=== PATIENT | female | born 1955 | race Caucasian/White ===

== ENCOUNTER → 2020-10-20 | Outpatient (CLI) | payer OTHER ==
--- NOTE | 2020-10-20 14:19 | RAD ---
XR FOOT_RIGHT 3 VIEWS 10/20/2020 10:19 AM INDICATION: Ulcer on great toe COMPARISON: None available. TECHNIQUE: 3 views the right foot are provided. FINDINGS/ IMPRESSION: There is no acute fracture or dislocation. Joint spaces are maintained. Bone mineralization is within normal limits. Regional focal soft tissue swelling of the first digit is identified. There is no sof t tissue gas or osseous erosion. No radiopaque foreign body. Vascular calcifications are present. Karthikeyan ntar calcaneal enthesophyte is noted. Electronically signed by: Chanelle Rdz MD (10/20/2020 2:17 PM) [id number]
== END ==
LOC: DXRAD 10:08
DX: L97.519 Non-pressure chronic ulcer of other part of right foot with unspecified severity (principal)
CPT/HCPCS: 73630

== ENCOUNTER → 2020-11-10 | Outpatient (CLI) | payer OTHER ==
--- NOTE | 2020-11-10 13:41 | RAD ---
EXAM: Bilateral hand and wrist DATE: 11/10/2020 9:26 AM INDICATIONS: Reason: BILATERAL HAND PAIN. R/O HYPERFLEXABILITY / Spl. Instructions: / History: COMPARISON: No prior FINDINGS: PA, oblique and lateral views of the hand and wrist bilaterally show normal symmetric bone density. Regional joint spaces are preserved. Negative degenerative changes. Negative erosive type ch anges. Borderline hyperextension at the right middle finger PIP joint and left middle and ring PIP tate ints. Negative periarticular soft tissue calcifications or chondrocalcinosis. Negative focal soft tis fozia swelling. IMPRESSION: No radiographic findings of inflammatory or erosive arthropathy. On these nonstress views, there is borderline hyperextension of the bilateral middle finger PIP and l eft ring finger PIP joints. Electronically signed by: Mckinley Israel MD (11/10/2020 1:39 PM) [id number]
== END ==
LOC: RAD 09:10
PROVIDERS: ATTEND Internal Medicine
DX: M77.11 Lateral epicondylitis, right elbow (principal); M89.49 Other hypertrophic osteoarthropathy, multiple sites; M79.642 Pain in left hand; M79.641 Pain in right hand
CPT/HCPCS: 73130

== ENCOUNTER 2020-11-15 12:10 | Emergency (ER) | payer OTHER ==
[2020-11-15] MEDS ORDERED: ACETAMINOPHEN 500 MG TABLET PO ONE (13:16)
[2020-11-15] MEDS ORDERED: AZITHROMYCIN 500 MG in IV NORMAL SALINE 250ML 250 ML IV ONE (13:16)
[2020-11-15] MEDS ORDERED: IV NORMAL SALINE 1,000ML 1,000 ML IV ONE (13:16)
[2020-11-15] MEDS ORDERED: KETOROLAC 15 MG/ML VIAL. IVP ONE (13:16)
--- NOTE | 2020-11-15 15:51 | RAD ---
PROCEDURE: XR CHEST 1V, XR FOOT_RIGHT 3 VIEWS STUDY DATE: 11/15/2020 CLINICAL INDICATION / HISTORY: Right first digit pain.. TECHNIQUE: AP, lateral and oblique views of the right foot. COMPARISON: 10/20/2020 right foot x-ray FINDINGS: No fracture or dislocation is identified. A calcaneal spur is evident. The bone density is normal. The joint space widths are maintained, and there are no erosions to suggest an inflammatory a rthropathy. No soft tissue abnormality is seen. IMPRESSION: No acute osseous abnormality. EXAM: XR CHEST 1V INDICATION: Altered mental status. TECHNIQUE: Single view COMPARISON: None FINDINGS: The heart size is normal. The great vessels appear unremarkable. There is no hilar or mediastinal mass. The lungs are hypoventilatory but show no focal infiltrates. There is no pleural effusion or pneumothorax. There are no significant osseous abnormalities. IMPRESSION: No active cardiopulmonary disease. Electronically signed by: Jane Gu MD (11/15/2020 3:48 PM) [id number]
--- NOTE | 2020-11-15 15:54 | RAD ---
EXAM: CT Head without IV contrast INDICATION: Reason: FEVER, ALTERED / Spl. Instructions: / History: TECHNIQUE: Multi-detector row CT images were obtained of the head without the use of IV contrast. All CT scans performed at this facility utilize dose optimization techniques as appropriate to the exam, including the following: Automated exposure control and adjustment of the mA and/or KV according to patient size (this includes techniques or standardized protocols for targeted exams where dose is ind ication/reason for exam). COMPARISON: None FINDINGS: BRAIN PARENCHYMA: No evidence of acute intraparenchymal hemorrhage or infarct. There is mild volume l oss and white matter low density compatible chronic ischemic microvascular change. VENTRICLES & EXTRA-AXIAL SPACES: Ventricles are within normal limits. Basilar cisterns are patent. N o pathologic extra-axial fluid collection or mass. ORBITS: Orbital contents are unremarkable. SINUSES: Visualized paranasal sinuses and mastoid air cells are clear. OSSEOUS & SOFT TISSUES: Calvarium and skull base are intact. IMPRESSION: No acute intracranial pathology. Electronically signed by: Jane Gu MD (11/15/2020 3:51 PM) [id number]
[2020-11-15] MEDS ORDERED: KETOROLAC 15 MG/ML VIAL. ONE (16:06)
[2020-11-15 16:53] LABS: BASO # 0.1 x10^3/uL (0.0-0.2); BASO % 1 % (0-3); EOS % 0 % (0-3); HEMATOCRIT 45.7 % (36.0-47.0); HEMOGLOBIN 14.7 g/dL (12.0-15.5); LYMPH # 0.2 x10^3/uL (1.0-4.8); LYMPH % 2 % (24-48); MEAN CORPUSCULAR HEMOGLOBIN 26 pg (25-35); MEAN CORPUSCULAR HGB CONC 32 g/dL (31-37); MEAN CORPUSCULAR VOLUME 82 fL (79-100); MONO # 0.2 x10^3/uL (0.0-1.1); MONO % 2 % (0-9); NEUT # 8.2 x10^3uL (1.8-7.7); NEUT % 95 % (31-73); PLATELET COUNT 135 x10^3/uL (140-400); RED BLOOD COUNT 5.61 x10^6/uL (3.50-5.40); RED CELL DISTRIBUTION WIDTH 15.9 % (11.5-14.5); WHITE BLOOD COUNT 8.6 x10^3/uL (4.0-11.0)
--- NOTE | 2020-11-15 17:04 | EKG ---
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
[2020-11-15] MEDS: IOHEXOL 350 MG/ML 100 ML VIAL. IV ONE (18:13)
--- NOTE | 2020-11-15 18:28 | RAD ---
CTA CHEST History: Syncope. Fever. Shortness of breath. Technique: CT of the chest was performed with intravenous contrast. PE protocol. Maximum intensity pr ojection coronal and sagittal reconstructions were performed. Exposure: One or more of the following individualized dose reduction techniques were utilized for thi s examination: 1. Automated exposure control 2. Adjustment of the mA and/or kV according to patient size 3. Use of iterative reconstruction technique. Comparison: None Findings: Chest: Evaluation for pulmonary emboli is essentially nondiagnostic due to contrast bolus timing. Coronary artery calcifications. No aortic aneurysm or dissection. No pathologic lymphadenopathy. No c onsolidation or pleural effusion. No pneumothorax. Mild bilateral lower lobe linear atelectasis. Small right thyroid nodule measures 6 mm. Upper abdomen: Prior cholecystectomy. Bones: No pathologic osseous lesions. Impression: 1. Essentially nondiagnostic evaluation of the pulmonary arteries due to contrast bolus timing. Ryan mmend repeat CT or VQ scan to further evaluate if persistent clinical concern. 2. Otherwise, no acute intrathoracic pathology. 3. Coronary artery calcifications. 4. Small right thyroid nodule. Electronically signed by: Aurelio Mckinley DO (11/15/2020 6:25 PM) [facility]
--- NOTE | 2020-11-15 19:09 | PHYS DOC ---
General Adult EDM: Chief Complaint: SYNCOPE HPI: HPI: Patient is a [age] year old [sex] who presents with [] Current Medications: Current Meds: Current Medications Medications (Trade) Dose Ordered Sig/Carter Start Time Stop Time Status Last Admin Dose Admin Acetaminophen (Tylenol) 1,000 mg 1X ONCE 11/15/20 13:16 11/15/20 17:11 DC Azithromycin 500 mg/Sodium Chloride 250 ml @ 250 mls/hr 1X ONCE 11/15/20 13:16 11/15/20 17:11 DC Ceftriaxone Sodium 1 gm/ Sodium Chloride 50 ml @ 100 mls/hr 1X ONCE 11/15/20 13:16 11/15/20 17:11 DC Iohexol (Omnipaque 350 Mg/ml) 100 ml 1X ONCE 11/15/20 17:00 11/15/20 17:03 DC 11/15/20 18:13 100 ML Ketorolac Tromethamine (Toradol 15mg Vial) 15 mg 1X ONCE 11/15/20 13:16 11/15/20 17:11 DC Sodium Chloride 1,000 ml @ 1,000 mls/hr 1X ONCE 11/15/20 13:16 11/15/20 17:11 DC Allergies: Allergies: Allergies Coded Allergies Type Severity Reaction Last Updated Verified Sulfa (Sulfonamide Antibiotics) Allergy Intermediate 11/15/20 Yes Current Patient Data: Labs: Laboratory Tests Test 11/15/20 16:50 11/15/20 17:43 White Blood Count 8.6 x10^3/uL (4.0-11.0) Red Blood Count 5.61 x10^6/uL (3.50-5.40) H Hemoglobin 14.7 g/dL (12.0-15.5) Hematocrit 45.7 % (36.0-47.0) Mean Corpuscular Volume 82 fL (79-100) Mean Corpuscular Hemoglobin 26 pg (25-35) Mean Corpuscular Hemoglobin Concent 32 g/dL (31-37) Red Cell Distribution Width 15.9 % (11.5-14.5) H Platelet Count 135 x10^3/uL (140-400) L Neutrophils (%) (Auto) 95 % (31-73) H Lymphocytes (%) (Auto) 2 % (24-48) L Monocytes (%) (Auto) 2 % (0-9) Eosinophils (%) (Auto) 0 % (0-3) Basophils (%) (Auto) 1 % (0-3) Neutrophils # (Auto) 8.2 x10^3uL (1.8-7.7) H Lymphocytes # (Auto) 0.2 x10^3/uL (1.0-4.8) L Monocytes # (Auto) 0.2 x10^3/uL (0.0-1.1) Eosinophils # (Auto) 0.0 x10^3/uL (0.0-0.7) Basophils # (Auto) 0.1 x10^3/uL (0.0-0.2) Prothrombin Time 13.3 SEC (9.4-11.4) H Prothrombin Time INR 1.3 (0.9-1.1) H Activated Partial Thromboplast Time 36 SEC (23-33) H D-Dimer (Christal) > 19.00 mg/L (0.00-0.50) H EKG: EKG: [] Radiology/Procedures: Radiology/Procedures: [] Heart Score: Risk Factors: Risk Factors: DM, Current or recent (<one month) smoker, HTN, HLP, family history of CAD, obesity. Risk Scores: Score 0 - 3: 2.5% MACE over next 6 weeks - Discharge Home Score 4 - 6: 20.3% MACE over next 6 weeks - Admit for Clinical Observation Score 7 - 10: 72.7% MACE over next 6 weeks - Early Invasive Strategies Course & Med Decision Making: Course & Med Decision Making Pertinent Labs and Imaging studies reviewed. (See chart for details) Due to [facility] downtime and hospital policy, please see paper documentation regarding patients' emergency department visit. This includes triage/nursing/physician documentation and any associated labs, imaging studies, vital signs, medications, disposition, discharge instructions and prescriptions, if applicable. Dragon Disclaimer: Dragon Disclaimer: This electronic medical record was generated, in whole or in part, using a voice recognition dictation system. Departure Departure: Impression: Primary Impression: Sepsis Additional Impressions: UTI (urinary tract infection) Multisystem organ failure NSTEMI (non-ST elevated myocardial infarction) Renal insufficiency Transaminitis Disposition: 05 DC/TRF OTHER TYPE INSTITUTI ([facility], accepted by Dr. Jolly) Condition: CRITICAL Referrals: MONICA THRASHER (PCP) VAMSI MCKEON DO Nov 15, 2020 19:09
[2020-11-15 21:16] LABS: TOTAL PROTEIN 6.8 g/dL (6.4-8.2)
[2020-11-15 21:17] LABS: ALBUMIN 3.2 g/dL (3.4-5.0); ALBUMIN/GLOBULIN RATIO 0.9 (1.0-1.7); CALCIUM 8.9 mg/dL (8.5-10.1); CREATININE 1.4 mg/dL (0.6-1.0); GFR 37.9; POTASSIUM 3.6 mmol/L (3.5-5.1)
[2020-11-15 21:20] LABS: BILIRUBIN,URINE NEG (NEG); CLARITY,URINE CLEAR; COLOR,URINE YELLOW; GLUCOSE,URINE 500 mg/dL (NEG); NITRITE,URINE POS (NEG)
[2020-11-15 21:21] LABS: AMORPHOUS SEDIMENT,UR PRESENT /HPF; BACTERIA,URINE FEW /HPF (0-FEW); RBC,URINE 0 /HPF (0-2); WBC,URINE 0 /HPF (0-4)
[2020-11-15 22:11] LABS: BARBITURATES NEG (NEG); BENZODIAZEPINES NEG (NEG); CANNABINOIDS NEG (NEG); COCAINE NEG (NEG); METHADONE NEG (NEG); OPIATES NEG (NEG); PHENCYCLIDINE NEG (NEG)
[2020-11-15 22:13] LABS: AMPHETAMINE/METHAMPHETAMINE NEG (NEG)
[2020-11-15 22:50] VITALS: BP 114/64
== END 2020-11-15 23:10 | disposition short-term general hospital (02) ==
LOC: ER 12:10
DX: A41.9 Sepsis, unspecified organism (principal); I21.4 Non-ST elevation (NSTEMI) myocardial infarction; R74.01 Elevation of levels of liver transaminase levels; N28.9 Disorder of kidney and ureter, unspecified; N39.0 Urinary tract infection, site not specified; R55 Syncope and collapse; M79.671 Pain in right foot; E11.9 Type 2 diabetes mellitus without complications; J45.909 Unspecified asthma, uncomplicated; Z20.822 Contact with and (suspected) exposure to COVID-19; Z88.2 Allergy status to sulfonamides
CPT/HCPCS: 36415; 70450; 71045; 71275; 73630; 80053; 80307; 81001; 83690; 83880; 84443; 84484; 85025; 85379; 85610; 85730; 87040; 87077; 87186; 87205; 93005; 96361; 96365; 96374; 96375; 99291; 99292; C9803; J0456; J0696; J7050; Q9967; U0003; 83605; 87086; 87804; 99285

== ENCOUNTER → 2020-12-15 | Outpatient (CLI) | payer OTHER ==
[2020-11-15 22:50] VITALS: BP 114/64
== END ==
LOC: LAB 08:36
PROVIDERS: ATTEND Internal Medicine Infectious Disease
DX: R78.81 Bacteremia (principal)
CPT/HCPCS: 87040

== ENCOUNTER 2020-12-22 14:59 | Emergency (ER) | payer OTHER ==
[~2020-12-22] VITALS: Ht 167.6 cm; Wt 100.0 kg
[2020-12-22] MEDS ORDERED: IV NORMAL SALINE 1,000ML 1,000 ML IV SCH (15:15)
[2020-12-22] MEDS ORDERED: ONDANSETRON PF 4 MG/2 ML VIAL. IVP ONE (15:15)
--- NOTE | 2020-12-22 15:22 | PHYS DOC ---
Adult General Chief Complaint Chief Complaint: NAUSEA/VOMITING/DIARRHEA HPI HPI Patient is a 65-year-old female with a known past medical history of asthma and hypertension presents emergency department complaint of new onset of abdominal pain and back pain. Patient said last night she started noting new onset of right-sided flank pain that radiated midepigastric and right upper quadrant of the abdomen. Patient's been associated worsening of nausea with dry heaves but no vomiting. Has been associated with loose watery diarrhea. Patient also notes that her urine has been dark despite drinking plenty fluids. Patient notes that approximately 6 months ago she has been to the hospital after developing urosepsis and stayed in the ICU. (CYDNEY COPELAND MD) Review of Systems Review of Systems Constitutional: Denies fever or chills [] Eyes: Denies change in visual acuity, redness, or eye pain [] HENT: Denies nasal congestion or sore throat [] Respiratory: Denies cough or shortness of breath [] Cardiovascular: No additional information not addressed in HPI [] GI: Denies abdominal pain, nausea, vomiting, bloody stools or diarrhea [] : Denies dysuria or hematuria [] Musculoskeletal: Denies back pain or joint pain [] Integument: Denies rash or skin lesions [] Neurologic: Denies headache, focal weakness or sensory changes [] Endocrine: Denies polyuria or polydipsia [] All other systems were reviewed and found to be within normal limits, except as documented in this note. (CYDNEY COPELAND MD) Current Medications Current Medications Current Medications Medications (Trade) Dose Ordered Sig/Carter Start Time Stop Time Status Last Admin Dose Admin Ondansetron HCl (Zofran) 4 mg 1X ONCE 12/22/20 15:15 12/22/20 15:16 UNV Sodium Chloride 1,000 ml @ 1,000 mls/hr Q1H 12/22/20 15:15 12/22/20 16:14 UNV (CYDNEY COPELAND MD) Allergies Allergies Allergies Coded Allergies Type Severity Reaction Last Updated Verified Sulfa (Sulfonamide Antibiotics) Allergy Intermediate 11/15/20 Yes (CYDNEY COPELAND MD) Physical Exam Physical Exam Constitutional: Well developed, well nourished, no acute distress, non-toxic appearance. [] HENT: Normocephalic, atraumatic, bilateral external ears normal, oropharynx moist, no oral exudates, nose normal. [] Eyes: PERRLA, EOMI, conjunctiva normal, no discharge. [] Neck: Normal range of motion, no tenderness, supple, no stridor. [] Cardiovascular:Heart rate regular rhythm, no murmur [] Lungs & Thorax: Bilateral breath sounds clear to auscultation [] Abdomen: Bowel sounds normal, soft, no tenderness, no masses, no pulsatile masses. Moderate right upper quadrant midepigastric abdominal tenderness and mild right flank tenderness. Skin: Warm, dry, no erythema, no rash. [] Back: No tenderness, no CVA tenderness. [] Extremities: No tenderness, no cyanosis, no clubbing, ROM intact, no edema. [] Neurologic: Alert and oriented X 3, normal motor function, normal sensory function, no focal deficits noted. [] Psychologic: Affect normal, judgement normal, mood normal. [] (CYDNEY COPELAND MD) EKG EKG [] (CYDNEY COPELAND MD) Radiology/Procedures Radiology/Procedures [] (CYDNEY COPELAND MD) Radiology/[place] [address] IMAGING REPORT Signed PATIENT: TREY HILL EACCOUNT: [id number] : 1955 LOCATION: ER AGE: 65 SEX: F EXAM STATUS: REG ER ORD. PHYSICIAN: CYDNEY COPELAND MD REASON: abdominal pain - 75mls omni 300. pt iv leaked mid injection. PROCEDURE: CT ABD PELV W/ IV CONTRST ONLY INDICATION: Reason: abdominal pain - 75mls omni 300. pt iv leaked mid injection. / Spl. Instructions: / History: . COMPARISON: None. TECHNIQUE: Axial CT images obtained through the abdomen and pelvis with contrast. Limited contrast bolus.. One or more of the following individualized dose reduction techniques were utilized for this examination: 1. Automated exposure control; 2. Adjustment of the mA and/or kV according to patient size; 3. Use of iterative reconstruction technique. FINDINGS: Mitral annulus calcification. Multifocal plaque throughout the abdominal aorta. Postcholecystectomy changes. No intrahepatic bile duct dilation. No peripancreatic fluid collection. Low-density at the posterior aspect of the spleen measuring up to about 3-4 cm. No hydronephrosis. Urinary bladder is partially distended. No dilated loops of bowel to suggest obstruction. No periappendiceal inflammatory changes. Sclerotic focus right iliac bone measuring 13 mm. Degenerative changes throughout the spine. Osseous demineralization. Multilevel central canal and neural foraminal stenosis. Within the lower lumbar spine the thecal sac is very small in size with epidural lipomatosis as well as disc protrusion with resultant narrowing of the central canal IMPRESSION: * No evidence of bowel obstruction or appendicitis. * No hydronephrosis. * Region of low density at the posterior aspect of the spleen. Nonspecific appearance and could be from some heterogenous enhancement to the area but a underlying lesion is not excluded. Additionally would correlate with symptoms in the region to ensure there is not an acute pathologic cause such as infarct, infectious etiology or contusion. If the patient does have symptoms to the region follow-up could BE obtained with multiphasic CT with contrast, focused ultrasound or MRI to further assess. There is very little contrast on this exam therefore the exam is very limited. Electronically signed by: Stephanie Post MD (12/22/2020 5:12 PM) [id number] DICTATED AND SIGNED BY: STEPHANIE POST MD DATE: 12/22/201655 CC: MONICA THRASHER; CYDNEY COPELAND MD ~MTH0 [address] [place] [address] IMAGING REPORT Signed PATIENT: TREY HILL EACCOUNT: [id number] : 1955 LOCATION: ER AGE: 65 SEX: F EXAM STATUS: REG ER ORD. PHYSICIAN: CYDNEY COPELAND MD REASON: abdominal pain - 75mls omni 300. pt iv leaked mid injection. PROCEDURE: CT ABD PELV W/ IV CONTRST ONLY INDICATION: Reason: abdominal pain - 75mls omni 300. pt iv leaked mid injection. / Spl. Instructions: / History: . COMPARISON: None. TECHNIQUE: Axial CT images obtained through the abdomen and pelvis with contrast. Limited contrast bolus.. One or more of the following individualized dose reduction techniques were utilized for this examination: 1. Automated exposure control; 2. Adjustment of the mA and/or kV according to patient size; 3. Use of iterative reconstruction technique. FINDINGS: Mitral annulus calcification. Multifocal plaque throughout the abdominal aorta. Postcholecystectomy changes. No intrahepatic bile duct dilation. No peripancreatic fluid collection. Low-density at the posterior aspect of the spleen measuring up to about 3-4 cm. No hydronephrosis. Urinary bladder is partially distended. No dilated loops of bowel to suggest obstruction. No periappendiceal inflammatory changes. Sclerotic focus right iliac bone measuring 13 mm. Degenerative changes throughout the spine. Osseous demineralization. Multilevel central canal and neural foraminal stenosis. Within the lower lumbar spine the thecal sac is very small in size with epidural lipomatosis as well as disc protrusion with resultant narrowing of the central canal IMPRESSION: * No evidence of bowel obstruction or appendicitis. * No hydronephrosis. * Region of low density at the posterior aspect of the spleen. Nonspecific appearance and could be from some heterogenous enhancement to the area but a underlying lesion is not excluded. Additionally would correlate with symptoms in the region to ensure there is not an acute pathologic cause such as infarct, infectious etiology or contusion. If the patient does have symptoms to the region follow-up could BE obtained with multiphasic CT with contrast, focused ultrasound or MRI to further assess. There is very little contrast on this exam therefore the exam is very limited. Electronically signed by: Stephanie Post MD (12/22/2020 5:12 PM) [id number] DICTATED AND SIGNED BY: STEPHANIE POST MD DATE: 12/22/201655 CC: MONICA THRASHER; CYDNEY COPELAND MD ~MTH0 0 (LIZZY SALMERON MD) Heart Score Risk Factors: Risk Factors: DM, Current or recent (<one month) smoker, HTN, HLP, family history of CAD, obesity. Risk Scores: Risk Factors: DM, Current or recent (<one month) smoker, HTN, HLP, family history of CAD, obesity. (CYDNEY COPELAND MD) C/O Chest Pain: N/A (LIZZY SALMERON MD) Course & Med Decision Making Course & Med Decision Making Pertinent Labs and Imaging studies reviewed. (See chart for details) [] (CYDNEY COPELAND MD) Course & Med Decision Making See Prior for detail- Dr. Copeland Impression: 1. Viral Syndrome 2. DJD/Spinal stenosis - Multilevel 3. Abdomen Pain Pt. take Tylenol as needed for discomfort. Clear fluid diet. Take Zofran 8 mg with 4 times a day for active nausea and vomiting. May take a Percocet up to 4 times a day for marked discomfort. Review ED record with your primary care. Consider follow-up CT/MRI to evaluate spleen findings. No findings acute surgical pathology noted at this time. Patient return if any concerns. Follow- up Covid testing. (LIZZY SALMERON MD) Dragon Disclaimer Dragon Disclaimer This electronic medical record was generated, in whole or in part, using a voice recognition dictation system. (CYDNEY COPELAND MD) Departure Departure: Referrals: MONICA THRASHER (PCP) Scripts Oxycodone HCl/Acetaminophen (Percocet 5-325 mg Tablet) 1 Each Tablet 1 TAB PO PRN QID PRN for PAIN MDD 4 Tablet(s) for 30 Days, #30 TAB 0 Refills Prov: LIZZY SALMERON MD 12/22/20 Ondansetron Hcl (ZOFRAN) 4 Mg Tablet 8 MG PO QIDPRN for active nausea and vomiting, #30 TAB Prov: LIZZY SALMERON MD 12/22/20 CYDNEY COPELAND MD Dec 22, 2020 15:22 LIZZY SALMERON MD Dec 22, 2020 18:43
--- NOTE | 2020-12-22 15:32 | EKG ---
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
[2020-12-22 15:56] LABS: BASO # 0.1 x10^3/uL (0.0-0.2); BASO % 1 % (0-3); EOS # 0.5 x10^3/uL (0.0-0.7); EOS % 5 % (0-3); HEMATOCRIT 40.3 % (36.0-47.0); HEMOGLOBIN 12.9 g/dL (12.0-15.5); LYMPH # 2.1 x10^3/uL (1.0-4.8); LYMPH % 20 % (24-48); MEAN CORPUSCULAR HEMOGLOBIN 26 pg (25-35); MEAN CORPUSCULAR HGB CONC 32 g/dL (31-37); MEAN CORPUSCULAR VOLUME 82 fL (79-100); MONO # 0.7 x10^3/uL (0.0-1.1); MONO % 7 % (0-9); NEUT # 7.1 x10^3uL (1.8-7.7); NEUT % 68 % (31-73); PLATELET COUNT 324 x10^3/uL (140-400); RED BLOOD COUNT 4.89 x10^6/uL (3.50-5.40); RED CELL DISTRIBUTION WIDTH 15.6 % (11.5-14.5); WHITE BLOOD COUNT 10.5 x10^3/uL (4.0-11.0)
[2020-12-22 15:59] LABS: CALCIUM 9.4 mg/dL (8.5-10.1); CREATININE 0.7 mg/dL (0.6-1.0); GFR 84.2; POTASSIUM 3.8 mmol/L (3.5-5.1)
[2020-12-22 16:05] LABS: ALBUMIN 3.3 g/dL (3.4-5.0); ALBUMIN/GLOBULIN RATIO 0.8 (1.0-1.7); TOTAL BILIRUBIN 0.2 mg/dL (0.2-1.0); TOTAL PROTEIN 7.7 g/dL (6.4-8.2)
[2020-12-22] MEDS ORDERED: IOHEXOL 300 MG/ML 75 ML VIAL. IV ONE (16:15)
--- NOTE | 2020-12-22 17:15 | RAD ---
INDICATION: Reason: abdominal pain - 75mls omni 300. pt iv leaked mid injection. / Spl. Instructions: / History: . COMPARISON: None. TECHNIQUE: Axial CT images obtained through the abdomen and pelvis with contrast. Limited contrast bolus.. One or more of the following individualized dose reduction techniques were utilized for this examinat ion: 1. Automated exposure control; 2. Adjustment of the mA and/or kV according to patient size; 3 . Use of iterative reconstruction technique. FINDINGS: Mitral annulus calcification. Multifocal plaque throughout the abdominal aorta. Postcholecystectomy changes. No intrahepatic bile duct dilation. No peripancreatic fluid collection. Low-density at the posterior aspect of the spleen measuring up to about 3-4 cm. No hydronephrosis. Urinary bladder is partially distended. No dilated loops of bowel to suggest obstruction. No periappendiceal inflammatory changes. Sclerotic focus right iliac bone measuring 13 mm. Degenerative changes throughout the spine. Osseous demineralization. Multilevel central canal and neural foraminal stenosis. Within the lower lumbar spine the thecal sac is very small in size with epidural lipomatosis as well as disc protrusion with resultant narrowing o f the central canal IMPRESSION: * No evidence of bowel obstruction or appendicitis. * No hydronephrosis. * Region of low density at the posterior aspect of the spleen. Nonspecific appearance and could be f rom some heterogenous enhancement to the area but a underlying lesion is not excluded. Additionally w ould correlate with symptoms in the region to ensure there is not an acute pathologic cause such as i nfarct, infectious etiology or contusion. If the patient does have symptoms to the region follow-up c ould BE obtained with multiphasic CT with contrast, focused ultrasound or MRI to further assess. Ther e is very little contrast on this exam therefore the exam is very limited. Electronically signed by: Zaheer Richards MD (12/22/2020 5:12 PM) [id number]
[2020-12-22 17:21] VITALS: BP 157/95
[2020-12-22] MEDS ORDERED: MORPHINE SULFATE 4 MG/ML DISP.SYRIN. IV ONE (17:30)
[2020-12-22 18:48] LABS: BACTERIA,URINE 0 /HPF (0-FEW); BILIRUBIN,URINE NEG (NEG); CLARITY,URINE CLEAR; COLOR,URINE YELLOW; GLUCOSE,URINE NEG (NEG); NITRITE,URINE NEG (NEG); RBC,URINE 0 /HPF (0-2); SQUAMOUS EPITHELIAL CELL,UR FEW /LPF; UROBILINOGEN,URINE 0.2 mg/dL (0.2 mg/dL); WBC,URINE 0 /HPF (0-4)
[2020-12-22] MEDS ORDERED: OXYC-325 PO (19:09)
[2020-12-22] MEDS ORDERED: ONDA4TAB7 PO (19:09)
--- NOTE | 2020-12-26 10:39 | NUR ---
PI note: Pt notified of negative COVID results by phone. Pt states she "did not realize they did a test." Pt understands results, does not have any questions.
== END 2020-12-22 19:25 | disposition home or self-care (01) ==
LOC: ER 14:59
DX: B34.9 Viral infection, unspecified (principal); Z20.822 Contact with and (suspected) exposure to COVID-19; M48.061 Spinal stenosis, lumbar region without neurogenic claudication; R10.13 Epigastric pain; I45.10 Unspecified right bundle-branch block; Z88.2 Allergy status to sulfonamides
CPT/HCPCS: 36415; 74177; 80053; 81001; 82550; 83690; 84484; 85025; 93005; 96361; 96374; 96375; 99285; C9803; J2270; J2405; J7030; Q9967; U0003

== ENCOUNTER 2021-03-17 22:01 | Emergency (ER) | payer MEDICARE, OTHER ==
[~2021-03-17] VITALS: Ht 162.6 cm; Wt 102.6 kg
[~2021-03-17 22:01] MED LIST: ONDA4TAB7 PO; OXYC-325 PO
--- NOTE | 2021-03-17 22:37 | PHYS DOC ---
Past History Past Medical History: Asthma, Hypertension, UTI Past Medical History Hx. Sepisis Past Surgical History: No Surgical History Alcohol Use: None General Adult EDM: Chief Complaint: URINARY FREQUENCY HPI: HPI: '". I feel .,. like I got a UTI again.. having to go all the time.. I had Uro- sepsis.. so I wanted to get checked again before it got worse..." Patient is a 66 year old female who presents with above hx and complaints of dysuria.. Hx. Uro Spesis in past year, with admission to [facility] in Oct. of this year. . Patient not currently on any antibiotics. No rash or vaginal discharge. Patient is significant past medical history of hypertension, degenerative joint changes, spinal stenosis, chronic abdomen pain, obesity.. No recent travel. No severe ill contacts. Pt. follows with Dr. Thrasher. Review of Systems: Review of Systems: Constitutional: Denies fever or chills Eyes: Denies change in visual acuity HENT: Denies nasal congestion or sore throat Respiratory: Denies cough or shortness of breath Cardiovascular: Denies chest pain or edema GI: Denies abdominal pain, nausea, vomiting, bloody stools or diarrhea : Complains of dysuria Musculoskeletal: Denies back pain or joint pain Integument: Denies rash Neurologic: Denies headache, focal weakness or sensory changes Endocrine: Denies polyuria or polydipsia Lymphatic: Denies swollen glands Psychiatric: Denies depression or anxiety Family History: Family History: Noncontributory to presentation Current Medications: Current Meds: See nursing for home meds Allergies: Allergies: Allergies Coded Allergies Type Severity Reaction Last Updated Verified Sulfa (Sulfonamide Antibiotics) Allergy Intermediate 11/15/20 Yes Physical Exam: PE: Constitutional: Moderate acute distress, non-toxic appearance. [] HENT: Normocephalic, atraumatic, bilateral external ears normal, oropharynx moist, no oral exudates, nose normal. [] Eyes: PERRLA, EOMI, conjunctiva normal, no discharge. Glasses Neck: Normal range of motion, no tenderness, supple, no stridor. [] Cardiovascular:Heart rate regular rhythm, no murmur [] PMI to left Lungs & Thorax: Bilateral breath sounds equal at apex auscultation [] Abdomen: Bowel sounds normal, soft, no tenderness, no masses, no pulsatile masses. Obese. Old surgery scars Skin: Warm, dry, no erythema, no rash. Poor turgor Back: No tenderness, no CVA tenderness. [] Extremities: No tenderness, no cyanosis, no clubbing, ROM intact, bilateral ankle edema. [] Neurologic: Alert and oriented X 3, moves extremities on request, does have distal sensory,, no focal deficits noted. [] Psychologic: Affect anxious, judgement normal, mood normal. [] EKG: EKG: [] Radiology/Procedures: Radiology/Procedures: [] Heart Score: C/O Chest Pain: N/A Risk Factors: Risk Factors: DM, Current or recent (<one month) smoker, HTN, HLP, family history of CAD, obesity. Risk Scores: Score 0 - 3: 2.5% MACE over next 6 weeks - Discharge Home Score 4 - 6: 20.3% MACE over next 6 weeks - Admit for Clinical Observation Score 7 - 10: 72.7% MACE over next 6 weeks - Early Invasive Strategies Course & Med Decision Making: Course & Med Decision Making Pertinent Labs and Imaging studies reviewed. (See chart for details) Patient push times he drinks. Patient take Keflex 500 mg 3 times a day. Patient follow-up urine cultures. Patient return if any concerns. Patient fol low-up primary care. Impression: 1. Dysuria 2. Hematuria [] Dragon Disclaimer: [place] Disclaimer: This electronic medical record was generated, in whole or in part, using a voice recognition dictation system. Departure Departure: Referrals: MONICA THRASHER (PCP) Scripts Fluconazole (DIFLUCAN) 100 Mg Tablet 100 MG PO DAILY for post antibioitics for 3 Days, #3 TAB Prov: LIZZY SALMERON MD 03/17/21 Cephalexin (KEFLEX) 750 Mg Capsule 500 MG PO TID for uti for 7 Days, #21 CAP Prov: LIZZY SALMERON MD 03/17/21 LIZZY SALMERON MD Mar 17, 2021 22:37
[2021-03-17 23:29] LABS: BARBITURATES NEG (NEG); BENZODIAZEPINES NEG (NEG); CANNABINOIDS NEG (NEG); COCAINE NEG (NEG); METHADONE NEG (NEG); OPIATES NEG (NEG); PHENCYCLIDINE NEG (NEG)
[2021-03-17 23:34] LABS: CLARITY,URINE CLOUDY; COLOR,URINE YELLOW; GLUCOSE,URINE 100 mg/dL (NEG)
[2021-03-17 23:35] LABS: BILIRUBIN,URINE NEG (NEG); NITRITE,URINE NEG (NEG)
[2021-03-17 23:36] LABS: BACTERIA,URINE FEW /HPF (0-FEW); SQUAMOUS EPITHELIAL CELL,UR OCC /LPF; WBC,URINE OCC /HPF (0-4)
[2021-03-17 23:39] LABS: AMPHETAMINE/METHAMPHETAMINE NEG (NEG)
[2021-03-17] MEDS ORDERED: FLUC100T7 PO (23:53)
[2021-03-17] MEDS ORDERED: CEPH750C9 PO (23:53)
[2021-03-18] MEDS ORDERED: CEPHALEXIN 250 MG CAPSULE PO ONE
[2021-03-18 00:09] VITALS: BP 167/76
== END 2021-03-18 00:09 | disposition home or self-care (01) ==
LOC: ER 22:01
DX: R30.0 Dysuria (principal); R31.9 Hematuria, unspecified; Z88.2 Allergy status to sulfonamides; J45.909 Unspecified asthma, uncomplicated; I10 Essential (primary) hypertension
CPT/HCPCS: 36415; 80307; 81001; 87086; 99283-25